=== PATIENT | male | born 1950 | race Caucasian/White ===

== ENCOUNTER 2019-08-11 10:03 | Outpatient (CLI) | payer MEDICARE, OTHER ==
--- NOTE | 2019-08-11 10:42 | RAD ---
Exam: Left foot 3 views: HISTORY: Left foot pain, history of gout FINDINGS: Focal soft tissue swelling medial to the first metatarsal phalangeal joint with some periventricular circumscribed erosive changes. Similar but less marked changes are noted laterally at the fifth metatarsophalangeal joint. These findings are certainly evidence for gout. Arteriovascular calcificat ions. No acute fracture or dislocation. IMPRESSION: Evidence for gout. Vascular calcifications. No fracture or dislocation.
--- NOTE | 2019-08-11 11:24 | RAD ---
RADIOGRAPH RIGHT FIFTH DIGIT 3 VIEWS: Date: 08/11/2019 HISTORY: 69-year-old male with deformity of right fifth digit. FINDINGS: The fifth DIP joint is fused. No metallic hardware. There is bony hypertrophy at the fifth DIP. PIP demonstrates minimal degenerative changes. MCP demonstrates minimal/mild degenerative changes, with asymmetrical mild joint space narrowing with out major bony hypertrophy. Small bone spur protruding from the ulnar side of the neck of the fifth metacarpal. No fracture or destructive osseous lesion. 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 POS: [facility]
== END 2019-08-11 10:04 | disposition home or self-care (01) ==
LOC: BICRAD 10:03
PROVIDERS: ATTEND Podiatrist
DX: M79.644 Pain in right finger(s) (principal); M25.572 Pain in left ankle and joints of left foot; M20.10 Hallux valgus (acquired), unspecified foot; M19.90 Unspecified osteoarthritis, unspecified site; M24.641 Ankylosis, right hand; M10.9 Gout, unspecified; I70.90 Unspecified atherosclerosis

== ENCOUNTER 2022-07-31 19:00 | Outpatient (CLI) | payer MEDICARE, OTHER | END 2022-07-31 19:01 | disposition home or self-care (01) | LOC: SLEEPLAB 19:00 | PROVIDERS: ATTEND Physician Assistant | DX: G47.33 Obstructive sleep apnea (adult) (pediatric) (principal); R53.83 Other fatigue; R09.89 Other specified symptoms and signs involving the circulatory and respiratory systems; I27.20 Pulmonary hypertension, unspecified | CPT/HCPCS: 95811 ==

== ENCOUNTER 2023-01-22 08:46 | Outpatient (CLI) | payer MEDICARE, OTHER | END 2023-01-22 08:47 | disposition home or self-care (01) | LOC: BICULT 08:46 | PROVIDERS: ATTEND Family Medicine | DX: R19.02 Left upper quadrant abdominal swelling, mass and lump (principal); K76.0 Fatty (change of) liver, not elsewhere classified | CPT/HCPCS: 76700 ==

== ENCOUNTER 2023-03-10 07:56 | Day surgery (SDC) | payer MEDICARE, OTHER ==
[2023-03-05 08:56] VITALS: BMI 31.0
[2023-03-10] MEDS ORDERED: Sodium Chloride 0.9% 100 ML ONE (09:03)
[2023-03-10] MEDS ORDERED: Ketorolac Tromethamine 30 MG/ML VIAL ONE (09:03)
[2023-03-10] MEDS ORDERED: CEFAZOLIN 2 GM VIAL ONE (09:03)
[2023-03-10] MEDS ORDERED: EPINEPHrine 1 MG/ML AMP ONE (09:21)
[2023-03-10] MEDS ORDERED: Bupivacaine 0.25% HCL 30 ML VIAL ONE (09:21)
[2023-03-10] MEDS ORDERED: fentaNYL PF 100 MCG/2 ML SYRINGE ONE (09:28)
[2023-03-10] MEDS ORDERED: SUGAMMADEX SODIUM 200 MG/2 ML VIAL ONE (09:28)
[2023-03-10] MEDS ORDERED: ePHEDrine Sulfate 50 MG/10 ML VIAL ONE (09:44)
[2023-03-10] MEDS ORDERED: Esmolol 100 MG/10 ML VIAL ONE (09:44)
[2023-03-10] MEDS ORDERED: Lidocaine 1% PF 5 ML VIAL ONE (09:44)
[2023-03-10] MEDS ORDERED: PROPOFOL 200 MG/20 ML VIAL ONE (09:44)
[2023-03-10] MEDS ORDERED: Rocuronium Bromide 10 MG/ML (10ML VIAL) ONE (09:44)
[2023-03-10] MEDS ORDERED: Ondansetron PF 4 MG/2 ML Vial ONE (09:44)
[2023-03-10] MEDS ORDERED: Dexamethasone 20 MG/5 ML VIAL ONE (09:44)
== END 2023-03-10 12:55 | disposition home or self-care (01) ==
LOC: SDC 07:56
PROVIDERS: ATTEND Specialist
PROC: 0WUF0JZ Supplement Abdominal Wall with Synthetic Substitute, Open Approach (ICD-10-PCS; principal; 2023-03-10)
DX: K42.9 Umbilical hernia without obstruction or gangrene (principal); F17.210 Nicotine dependence, cigarettes, uncomplicated; Z79.899 Other long term (current) drug therapy
CPT/HCPCS: C1889; J0171; J1100; J1885; J2405; J2704; J3490; S0020

== ENCOUNTER 2023-08-03 05:51 | Day surgery (SDC) | payer MEDICARE, OTHER ==
[2023-07-31 10:51] VITALS: BMI 32.5
[2023-08-03 06:34] LABS: #Eosinphils 0.2 thou/uL (0.0-0.7); #Monocytes 0.7 thou/uL (0.11-0.59); #Neutrophils 3.5 thou/uL (1.40-6.50); %Basophils 0.6 % (0.0-1.0); %Eosinophils 3.3 % (0.0-10.0); %Lymphocytes 11.1 % (21.0-51.0); %Monocytes 13.4 % (0.0-10.0); %Neutrophils 71.4 % (42.0-75.0); Hematocrit 46.4 % (42.0-52.0); Mean Corpuscular HGB CONC 34.5 g/dL (32.0-36.0); Mean Corpuscular Hemoglobin 34.1 pg (27.0-31.0); Mean Corpuscular Volume 98.9 fl (78.0-98.0); Mean Platelet Volume 10.3 fL (7.4-10.4); Platelet Count 101 10x3/uL (130-400); Red Blood Cell (RBC) Count 4.69 mill/uL (4.70-6.10); White Blood Cell (WBC) Count 4.9 10x3/uL (4.8-10.8)
[2023-08-03 06:49] LABS: ALT (SGPT) 41 U/L (8-55); AST (SGOT) 26 U/L (5-34); Albumin 4.4 g/dL (3.4-4.8); Alkaline Phosphatase 72 U/L (40-110); Anion Gap 15 mmol/L (10-20); BUN (Urea Nitrogen) 38 mg/dL (8.4-25.7); Bilirubin, Total 0.6 mg/dL (0.2-1.2); Calc. Creatinine Clearance 53 mL/min (70-130); Calcium 9.7 mg/dL (7.8-10.44); Carbon Dioxide 21 mmol/L (23-31); Chloride 110 mmol/L (98-107); Estimated GFR 41; Globulin 3.1 g/dL (2.4-3.5); Glucose 153 mg/dL (83-110); Potassium 4.5 mmol/L (3.5-5.1); Protein, Total 7.5 g/dL (5.8-8.1); Sodium 141 mmol/L (136-145)
[2023-08-03 07:11] LABS: CellaVision Operator ID LAB.KW3; Platelet Adequacy Comment Platelets Decreased; RBC Morphology Within Normal Limits
== END 2023-08-03 07:50 | disposition home or self-care (01) ==
LOC: SDC 05:51
PROVIDERS: ATTEND Internal Medicine Cardiovascular Disease
DX: R94.39 Abnormal result of other cardiovascular function study (principal); I47.29 Other ventricular tachycardia; R06.09 Other forms of dyspnea; I10 Essential (primary) hypertension; M10.9 Gout, unspecified; Z53.9 Procedure and treatment not carried out, unspecified reason; Z79.899 Other long term (current) drug therapy; Z87.891 Personal history of nicotine dependence; Z88.1 Allergy status to other antibiotic agents; Z88.2 Allergy status to sulfonamides; Z88.8 Allergy status to other drugs, medicaments and biological substances
CPT/HCPCS: 80053; 85025